=== PATIENT | male | born 1965 | race Hispanic/Latino ===

== ENCOUNTER 2017-05-12 03:10 | Emergency (ER) | payer MEDICAID ==
[2017-05-12] MEDS ORDERED: MOTRIN PO ONE (06:11)
[2017-05-12] MEDS ORDERED: MOTRIN ONE (06:13)
[2017-05-12] MEDS ORDERED: TORADOL IM ONE (07:16)
--- NOTE | 2017-05-12 07:21 | Emergency Department Report ---
ED ENT HPI - General Chief complaint: Dental/Oral Stated complaint: JAW PAIN Time Seen by Provider: 05/12/17 07:10 Source: patient Mode of arrival: Ambulatory Limitations: No Limitations - History of Present Illness Initial comments: This is a 51-year-old male nontoxic, well nourished in appearance, no acute signs of distress presents to the ED with c/o of toothache x4 days. Patient describes pain as aching with level of 8/10. Patient denies any trauma. Denies any facial swelling, numbness, tingling, fever, chills, headache, stiff neck, blurry vision, chest pain, shortness of breath, nausea or vomiting. Patient denies any allergies. Past medical history includes arthritis, kidney stones, hypertension, psychiatric, and seizures. MD complaint: tooth pain -: days(s) (4) Location: tooth # (16) 1 - dental caries Severity: mild Severity scale (0 -10): 8 Quality: aching Consistency: constant Improves with: none Worsens with: none Context- Dental: history of dental caries, poor dental care Associated Symptoms: gum swelling, toothache. denies: fever, cough, pain with swallowing, sore throat, tinnitus, hearing loss, discharge from ear, rhinorrhea - Related Data Home Medications Medication Instructions Recorded Confirmed Last Taken Divalproex Sodium [Depakote] 250 mg PO BID 12/21/14 02/06/16 02/06/16 05:30 FLUoxetine [PROzac] 20 mg PO QDAY 12/21/14 01/31/16 02/05/16 AtorvaSTATin [Lipitor] 40 mg PO DAILY 01/31/16 01/31/16 02/05/16 Ciprofloxacin (Nf) [Cipro] 1 tab PO BID 01/31/16 01/31/16 02/05/16 Fluticasone/Salmeterol [Advair 1 - 2 puff IH BID 01/31/16 02/06/16 02/04/16 250-50 Diskus] Lisinopril [Lisinopril] 1 tab PO DAILY 01/31/16 02/06/1616 05:30 QUEtiapine [Seroquel] 1 tab PO QHS 01/31/16 01/31/16 02/05/16 Tamsulosin [Flomax] 0.4 mg PO QDAY 01/31/16 01/31/16 02/05/16 Tramadol HCl [traMADol] 1 tab PO BID 01/31/16 01/31/16 02/05/16 Albuterol *Only Ed* [Proventil 2 puff IH DAILY 02/03/16 02/03/16 02/05/16 0.5% NEBS] Previous Rx's Medication Instructions Recorded Last Taken Type Amoxicillin/K Clav Tab [Augmentin 1 tab PO Q12HR #20 tab 05/12/17 Unknown Rx 875 mg] traMADol [Ultram] 50 mg PO Q6HR PRN #12 tablet 05/12/17 Unknown Rx Allergies Allergy/AdvReac Type Severity Reaction Status Date / Time No Known Allergies Allergy Verified 04/14/14 10:52 ED Dental HPI - General Chief complaint: Dental/Oral Stated complaint: JAW PAIN Time Seen by Provider: 05/12/17 07:10 Source: patient Mode of arrival: Ambulatory Limitations: No Limitations - Related Data Home Medications Medication Instructions Recorded Confirmed Last Taken Divalproex Sodium [Depakote] 250 mg PO BID 12/21/14 02/06/16 02/06/16 05:30 FLUoxetine [PROzac] 20 mg PO QDAY 12/21/14 01/31/16 02/05/16 AtorvaSTATin [Lipitor] 40 mg PO DAILY 01/31/16 01/31/16 02/05/16 Ciprofloxacin (Nf) [Cipro] 1 tab PO BID 01/31/16 01/31/16 02/05/16 Fluticasone/Salmeterol [Advair 1 - 2 puff IH BID 01/31/16 02/06/16 02/04/16 250-50 Diskus] Lisinopril [Lisinopril] 1 tab PO DAILY 01/31/16 02/06/16 02/06/16 05:30 QUEtiapine [Seroquel] 1 tab PO QHS 01/31/16 01/31/16 02/05/16 Tamsulosin [Flomax] 0.4 mg PO QDAY 0901/31/16 02/05/16 Tramadol HCl [traMADol] 1 tab PO BID 01/31/16 01/31/16 02/05/16 Albuterol *Only Ed* [Proventil 2 puff IH DAILY 02/03/16 02/03/16 02/05/16 0.5% NEBS] Previous Rx's Medication Instructions Recorded Last Taken Type Amoxicillin/K Clav Tab [Augmentin 1 tab PO Q12HR #20 tab 05/12/17 Unknown Rx 875 mg] traMADol [Ultram] 50 mg PO Q6HR PRN #12 tablet 05/12/17 Unknown Rx Allergies Allergy/AdvReac Type Severity Reaction Status Date / Time No Known Allergies Allergy Verified 04/14/14 10:52 ED Review of Systems ROS: Stated complaint: JAW PAIN Other details as noted in HPI Constitutional: denies: chills, fever Eyes: denies: eye pain, eye discharge, vision change ENT: dental pain. denies: ear pain, throat pain Respiratory: denies: cough, shortness of breath, wheezing Cardiovascular: denies: chest pain, palpitations Endocrine: no symptoms reported Gastrointestinal: denies: abdominal pain, nausea, diarrhea Genitourinary: denies: urgency, dysuria Musculoskeletal: denies: back pain, joint swelling, arthralgia Skin: denies: rash, lesions Neurological: denies: headache, weakness, paresthesias Psychiatric: denies: anxiety, depression Hematological/Lymphatic: denies: easy bleeding, easy bruising ED Past Medical Hx - Past Medical History Previous Medical History?: Yes Hx Hypertension: Yes Hx Arthritis: Yes Hx Seizures: Yes ([id number] LAST SEIZURE) Hx Kidney Stones: Yes Hx Psychiatric Treatment: Yes (depression , anxiety, bipolar) Hx Tuberculosis: No Hx HIV: No Additional medical history: enlarged prostate - Surgical History Past Surgical History?: Yes Additional Surgical History: hernia surgery bilat - Social History Smoking Status: Current Every Day Smoker - Medications Home Medications: Home Medications Medication Instructions Recorded Confirmed Last Taken Type Divalproex Sodium [Depakote] 250 mg PO BID 12/21/14 02/06/16 02/06/16 05:30 History FLUoxetine [PROzac] 20 mg PO QDAY 12/21/14 01/31/16 02/05/16 History AtorvaSTATin [Lipitor] 40 mg PO DAILY 0901/31/16 02/05/16 History Ciprofloxacin (Nf) [Cipro] 1 tab PO BID 01/31/16 01/31/16 02/05/16 History Fluticasone/Salmeterol [Advair 1 - 2 puff IH BID 01/31/16 02/06/16 02/04/16 History 250-50 Diskus] Lisinopril [Lisinopril] 1 tab PO DAILY 01/31/16 02/06/16 02/06/16 05:30 History QUEtiapine [Seroquel] 1 tab PO QHS 01/31/16 01/31/16 02/05/16 History Tamsulosin [Flomax] 0.4 mg PO QDAY 01/31/16 01/31/16 02/05/16 History Tramadol HCl [traMADol] 1 tab PO BID 01/31/16 01/31/16 02/05/16 History Albuterol *Only Ed* [Proventil 2 puff IH DAILY 02/03/16 02/03/16 02/05/16 History 0.5% NEBS] Amoxicillin/K Clav Tab [Augmentin 1 tab PO Q12HR #20 tab 05/12/17 Unknown Rx 875 mg] traMADol [Ultram] 50 mg PO Q6HR PRN #12 tablet 05/12/17 Unknown Rx ED Physical Exam - General Limitations: No Limitations General appearance: alert, in no apparent distress - Head Head exam: Present: atraumatic, normocephalic, normal inspection - Eye Eye exam: Present: normal appearance, PERRL, EOMI. Absent: scleral icterus, conjunctival injection, nystagmus, periorbital swelling, periorbital tenderness Pupils: Present: normal accommodation - ENT ENT exam: Present: mucous membranes moist, TM's normal bilaterally, normal external ear exam - Expanded ENT Exam Expanded Ear exam: Present: normal external inspection Mouth exam: Present: normal external inspection, tongue normal. Absent: drooling, trismus, muffled voice, tongue elevation, laceration Teeth exam: Present: dental caries, fractured tooth # (16), dental tenderness # (16), gingival enlargement, other (No facial swelling or abscess noted.) 1 - Fractured, Dental Tenderness Throat exam: Positive: normal inspection. Negative: tonsillar erythema, tonsillomegaly, tonsillar exudate, R peritonsillar mass, L peritonsillar mass - Neck Neck exam: Present: normal inspection, full ROM. Absent: tenderness, meningismus, lymphadenopathy, thyromegaly - Respiratory Respiratory exam: Present: normal lung sounds bilaterally. Absent: respiratory distress, wheezes, rales, rhonchi, stridor, chest wall tenderness, accessory muscle use, decreased breath sounds, prolonged expiratory - Cardiovascular Cardiovascular Exam: Present: regular rate, normal rhythm, normal heart sounds. Absent: bradycardia, tachycardia, irregular rhythm, systolic murmur, diastolic murmur, rubs, gallop - GI/Abdominal GI/Abdominal exam: Present: soft, normal bowel sounds. Absent: distended, tenderness, guarding, rebound, rigid, diminished bowel sounds - Rectal Rectal exam: Present: deferred - Extremities Exam Extremities exam: Present: normal inspection, full ROM, normal capillary refill. Absent: tenderness, pedal edema, joint swelling, calf tenderness - Back Exam Back exam: Present: normal inspection, full ROM. Absent: tenderness, CVA tenderness (R), CVA tenderness (L), muscle spasm, paraspinal tenderness, vertebral tenderness, rash noted - Neurological Exam Neurological exam: Present: alert, oriented X3, CN II-XII intact, normal gait, reflexes normal - Psychiatric Psychiatric exam: Present: normal affect, normal mood - Skin Skin exam: Present: warm, dry, intact, normal color. Absent: rash ED Course Vital Signs 05/12/17 05/12/17 04:39 06:15 Temperature 98.8 F Pulse Rate 68 Respiratory 20 18 Rate Blood Pressure 125/89 O2 Sat by Pulse 96 Oximetry - Reevaluation(s) Reevaluation #1: 05/12/17 07:21 Patient is speaking in full sentences with no signs of distress noted. ED Medical Decision Making - Medical Decision Making This is a 51-year-old that presents with dental caries and gingivitis. Patient received Motrin which patient stated did not really help for pain. Patient recevied Toradol in the ED. Patient received Augmentin at discharge and Ultram and was instructed not to operate any machinery while taking Ultram. Patient was instructed Follow-up with a dentist in 3-5 days or if symptoms worsen and continue return to emergency room as soon as possible. At time time of discharge, the patient does not seem toxic or ill in appearance. No acute signs of distress noted. Patient agrees to discharge treatment plan of care. No further questions noted by the patient. Critical care attestation.: If time is entered above; I have spent that time in minutes in the direct care of this critically ill patient, excluding procedure time. ED Disposition Clinical Impression: Dental caries, Gingivitis Disposition: DC- TO HOME OR SELFCARE Is pt being admited?: No Does the pt Need Aspirin: No Condition: Stable Instructions: Dental Caries (ED), Gingivitis (ED), Tramadol (By mouth), Amoxicillin/Clavulanate Potassium (By mouth) Additional Instructions: Follow-up with a dentist in 3-5 days or if symptoms worsen and continue return to emergency room as soon as possible. Do not operate any machinery while taking the Ultram due to drowsiness Prescriptions: Amoxicillin/K Clav Tab [Augmentin 875 mg] 1 tab PO Q12HR #20 tab traMADol [Ultram] 50 mg PO Q6HR PRN #12 tablet PRN Reason: Pain Referrals: DEVIN PABON MD [Primary Care Provider] - 3-5 Days VAMSI JACOBSON MD [Staff Physician] - 3-5 Days [facility] [Outside] - 3-5 Days Forms: Work/School Release Form(ED)
[2017-05-12 07:37] VITALS: BP 134/92
== END 2017-05-12 07:35 | disposition home or self-care (01) ==
LOC: ED 03:10
DX: K02.9 Dental caries, unspecified (principal); K05.10 Chronic gingivitis, plaque induced; I10 Essential (primary) hypertension; M19.90 Unspecified osteoarthritis, unspecified site; F31.9 Bipolar disorder, unspecified; F17.200 Nicotine dependence, unspecified, uncomplicated
CPT/HCPCS: 96372; 99282; J1885

== ENCOUNTER 2018-02-06 15:27 | Emergency (ER) | payer MEDICAID ==
[2018-02-06 17:02] VITALS: BP 117/77
[2018-02-06] MEDS ORDERED: NACL 0.9% 1000 ML 1,000 ML IV ONE (17:03)
[2018-02-06 18:15] LABS: Bilirubin,Urine NEG (Negative); Blood,Urine NEG (Negative); Color,Urine Amber (Yellow); Mucus,Urine 3+ /HPF
== END 2018-02-06 18:42 | disposition left against medical advice (07) ==
LOC: ED 15:27
DX: R11.2 Nausea with vomiting, unspecified (principal); Z53.21 Procedure and treatment not carried out due to patient leaving prior to being seen by health care provider
CPT/HCPCS: 81001